=== PATIENT | male | born 1965 | race Caucasian/White ===

== ENCOUNTER 2019-06-15 18:30 | Emergency (ER) | payer OTHER ==
[~2019-06-15] VITALS: Ht 162.6 cm; Wt 94.8 kg
[2019-06-15 18:54] VITALS: BP 137/81
--- NOTE | 2019-06-15 19:47 | NUR ---
AMBULATES TO BED 05 WITH UPRIGHT, STEADY GAIT. FAMILY ACCOMPANYING.
--- NOTE | 2019-06-15 19:50 | NUR ---
PT 53 Y/O MALE BIB DAUGHTER FOR C/O LLQ AND LUQ ABD PAIN X 3 DAYS. PT HAS C/O DARK COLORED DIARRHEA X 3 DAYS. PAIN IS 4/10 UPON REST AND 6/10 WHEN WALKING OR MOVING AND RADIATES TO RLQ WHEN WALKING. PT DENIES N/V AT THIS TIME. PT RESPIRATIONS ARE EVEN AND UNLABORED. SKIN IS WARM AND DRY TO TOUCH. PT SITTING UPRIGHT IN BED. BED LOCKED AND IN LOWEST POSITION. DAUGHTER AT BEDISDE. MEDHX: HTN, HYPERLIPIDEMIA] ALLERGIES: NKA
--- NOTE | 2019-06-15 22:15 | NUR ---
PT AT BEDSIDE. PT RESTING IN BED SITTING UPRIGHT WITH EYES OPEN. RESPIRATIONSARE EVEN AND UNLABORED. PT AAO X4. SKIN IS WARM AND DRY TO TOUCH. PT STATES," MY PAIN FEELS BETTER BECAUSE I'M RELAXING HERE AND NOT MOVING." PT DENIES N/V AT THIS TIME. PT ON MONTIOR. BED LOCKED AND IN LOWEST POSITION.
[2019-06-15 22:26] LABS: APPEARANCE,URINE CLEAR (CLEAR); BILIRUBIN,URINE NEGATIVE (NEGATIVE); BLOOD, URINE NEGATIVE (NEGATIVE); COLOR,URINE YELLOW (YELLOW); LEUKOCYTE ESTERASE ,URINE NEGATIVE (NEGATIVE); NITRITE, URINE NEGATIVE (NEGATIVE); PH,URINE 6.5 (5.0-9.0); UGLUCOSE NEGATIVE (NEGATIVE)
[2019-06-15 22:43] LABS: BASOPHILS # (AUTO) 0.1 K/uL (0.00-0.22); BASOPHILS % (AUTO) 0.9 % (0.0-2.0); EOSINOPHILS # (AUTO) 0.2 K/uL (0-0.4); EOSINOPHILS % (AUTO) 2.6 % (0.0-4.0); HEMATOCRIT 39.5 % (36-52); HEMOGLOBIN 13.6 g/dL (12.0-18.0); LYMPHOCYTES # (AUTO) 2.8 K/uL (2.0-11.5); LYMPHOCYTES % (AUTO) 48.8 % (20.5-51.1); MEAN CORPUSCULAR HEMOGLOBIN 32 pg (27-31); MEAN CORPUSCULAR HGB CONC 34 g/dL (33-37); MEAN CORPUSCULAR VOLUME 91.6 fL (80-94); MONOCYTES # (AUTO) 0.5 K/uL (0.8-1.0); MONOCYTES % (AUTO) 8.3 % (1.7-9.3); NEUTROPHILS # (AUTO) 2.3 K/uL (1.8-7.7); NEUTROPHILS % (AUTO) 39.4 % (42.2-75.2); PLATELET COUNT (AUTO) 301 K/uL (140-450); RED BLOOD CELL COUNT(AUTO) 4.31 MIL/uL (4.20-6.10); RED CELL DISTRIBUTION WIDTH 13.8 % (11.6-13.7); WHITE BLOOD COUNT (AUTO) 5.8 K/uL (4.8-10.8)
[2019-06-15 23:07] LABS: ALBUMIN 3.9 g/dL (3.4-5.0); ANION GAP 13.4 (8-16); CARBON DIOXIDE 29.2 mmol/L (21-32); CREATININE 0.8 mg/dL (0.7-1.3); TOTAL BILIRUBIN 0.5 mg/dL (0.0-1.0)
[2019-06-15 23:09] LABS: POTASSIUM 2.6 mmol/L (3.5-5.1)
--- NOTE | 2019-06-15 23:10 | NUR ---
LAB CALLED AND SPOKE WITH RUFINO [facility]TH AND NOTIFIED THAT PT POTASSIUM LEVEL AT 2.6. NOTIFED AND GAVE NEW ORDERS FOR POTASSIUM PO TO BE GIVEN. PT ON MONITOR.
[2019-06-16] MEDS ORDERED: FAMOTIDINE 20 MG TAB PO ONE (00:30)
[2019-06-16] MEDS ORDERED: POTASSIUM CHLORIDE 10 MEQ TABER PO ONE (00:30)
--- NOTE | 2019-06-16 01:40 | NUR ---
Patient discharged with v/s stable. Written and verbal after care instructions given and explained. Patient alert, oriented and verbalized understanding of instructions. Ambulatory with steady gait. All questions addressed prior to discharge. ID band removed. Patient advised to follow up with PMD. Rx of BENTYL, PEPCID given. Patient educated on indication of medication including possible reaction and side effects. Opportunity to ask questions provided and answered.
[2019-06-16 02:22] VITALS: BP 115/77
== END 2019-06-16 01:40 | disposition home or self-care (01) ==
LOC: MED 18:30
DX: K29.70 Gastritis, unspecified, without bleeding (principal); B34.9 Viral infection, unspecified; I10 Essential (primary) hypertension; E78.00 Pure hypercholesterolemia, unspecified; Z90.49 Acquired absence of other specified parts of digestive tract
CPT/HCPCS: 36415; 80053; 81003; 82150; 83690; 85025; 99283